=== PATIENT | male | born 1975 | race Caucasian/White ===

== ENCOUNTER 2017-05-15 16:53 | Emergency (ER) | payer OTHER ==
[2017-05-15 18:40] LABS: ADD MAN DIFF? NO
[2017-05-15 18:42] LABS: BASOPHILS % 0.4 % (0.0-2.0); EOSINOPHILS # 0.1 10^3/ul (0.0-0.5); EOSINOPHILS % 1.4 % (0.0-7.0); HEMATOCRIT 33.3 % (42.0-52.0); HEMOGLOBIN 10.4 g/dl (14.0-18.0); LYMPHOCYTES # 2.6 10^3/ul (0.8-2.9); LYMPHOCYTES % 32.4 % (15.0-51.0); MEAN CORPUSCULAR HEMOGLOBIN 24.4 pg (29.0-33.0); MEAN CORPUSCULAR HGB CONC 31.2 g/dl (32.0-37.0); MEAN CORPUSCULAR VOLUME 78.2 fl (82.0-101.0); MEAN PLATELET VOLUME 8.5 fl (7.4-10.4); MONOCYTE # 0.4 10^3/ul (0.3-0.9); MONOCYTES % 5.4 % (0.0-11.0); NEUTROPHIL # 4.8 10^3/ul (1.6-7.5); NEUTROPHILS % 60.2 % (39.0-77.0); PLATELET COUNT 262 10^3/UL (140-415); RED BLOOD COUNT 4.26 10^6/ul (4.70-6.10); RED CELL DISTRIBUTION WIDTH 14.4 % (11.5-14.5)
[2017-05-15 18:59] LABS: ANION GAP 15 (8-16); BLOOD UREA NITROGEN 15 mg/dl (7-20); CALCIUM 8.6 mg/dl (8.4-10.2); CARBON DIOXIDE 25 mmol/L (21-31); CHLORIDE 103 mmol/L (97-110); CREATININE 0.75 mg/dl (0.61-1.24); GLUCOSE 143 mg/dl (70-220); SODIUM 139 mmol/L (135-144)
[2017-05-15] MEDS: NITROGLYCERIN (SL) 0.4 MG TAB SL (19:04)
[2017-05-15] MEDS: HYDROCODONE/APAP (5/325) TAB PO (19:04)
[2017-05-15 19:12] LABS: TROPONIN-I < 0.012 ng/ml (0.00-0.12)
== END 2017-05-15 19:37 | disposition home or self-care (01) ==
LOC: E/R 16:53
DX: R07.9 Chest pain, unspecified (principal); E11.9 Type 2 diabetes mellitus without complications; Z79.4 Long term (current) use of insulin; Z79.82 Long term (current) use of aspirin
CPT/HCPCS: 36415; 71045; 80048; 84484; 85025; 93005; 99285-25

== ENCOUNTER 2017-07-26 10:18 | Emergency (ER) | payer OTHER | END 2017-07-26 12:05 | disposition home or self-care (01) | LOC: FTE 10:18 | DX: K42.9 Umbilical hernia without obstruction or gangrene (principal); E11.9 Type 2 diabetes mellitus without complications; Z79.82 Long term (current) use of aspirin; Z79.84 Long term (current) use of oral hypoglycemic drugs | CPT/HCPCS: 99282; Z7502 ==

== ENCOUNTER 2018-01-27 11:16 | Emergency (ER) | payer SELFPAY, OTHER | END 2018-01-27 19:01 | disposition home or self-care (01) | LOC: FTE 19:01 | DX: R30.0 Dysuria (principal); E11.9 Type 2 diabetes mellitus without complications; Z79.82 Long term (current) use of aspirin; Z79.84 Long term (current) use of oral hypoglycemic drugs | CPT/HCPCS: 82962; 99283 ==